=== PATIENT | female | born 1975 | race Caucasian/White ===

== ENCOUNTER → 2016-08-13 | Outpatient (CLI) | payer OTHER, BC ==
[~2016-08-13] MED LIST: Fioricet 325 MG1 TAB PO; NO DAILY MEDS; VICODIN ES 7501 TAB PO; ZOFRAN4 MG PO
[2016-08-13 08:40] LABS: HEMATOCRIT 38.9 % (37.0-47.0); HEMOGLOBIN 13.8 g/dl (12.0-16.0); MEAN CORPUSCULAR HGB 32.6 pg (27.0-31.0); MEAN CORPUSCULAR HGB CONC 35.5 g/dl (33.0-37.0); RED BLOOD COUNT 4.23 10*6/uL (4.10-5.10); RED CELL DISTRI WIDTH 13.3 % (0-14.5); WHITE BLOOD COUNT 8.9 10*3/uL (4.8-10.8)
[2016-08-13 09:06] LABS: ALBUMIN 3.2 gm/dl (3.1-4.5); BILIRUBIN, TOTAL 0.3 mg/dl (0.2-1.0); BUN 8 mg/dl (7-24); CARBON DIOXIDE 25 mmol/L (21-32); CHLORIDE 109 mmol/L (98-107); CHOLESTEROL 224 mg/dL (<200); EST GLOM FILT AFRICAN AMERICAN > 60 ml/min; GLUCOSE 90 mg/dL (65-99); HDL CHOLESTEROL 38 mg/dl (40-60); LDL CHOLESTEROL 149 mg/dL (9-159); SGOT/AST 8 IU/L (3-35); SGPT/ALT 13 U/L (12-78); SODIUM 142 mmol/L (136-145); TOTAL PROTEIN 6.9 gm/dL (6.4-8.2); TRIGLYCERIDES 186 mg/dl (<150); VLDL CHOLESTEROL 37 mg/dL (6-40)
[2016-08-13 09:15] LABS: ALKALINE PHOSPHATASE 86 U/L (45-117)
== END | disposition home or self-care (01) ==
LOC: LAB 08:10
PROVIDERS: Family Medicine
DX: F32.9 Major depressive disorder, single episode, unspecified (principal); F41.1 Generalized anxiety disorder; E74.00 Glycogen storage disease, unspecified; E78.00 Pure hypercholesterolemia, unspecified; R63.5 Abnormal weight gain

== ENCOUNTER → 2017-09-30 | Outpatient (CLI) | payer OTHER, BC ==
--- NOTE | ~2017-09-30 | HM ---
[place], [place] HOLTER MONITOR REPORT NAME: [facility]Z [facility]: [id number] UNIT #: [id number] ROOM: DOCTOR: CHIDI MOORE MD BIRTHDATE: [birth year] DOS: 09/30/2017 HOLTER REPORT The Holter was done on 09/30/2017. Total time analyzed was 23 hours and 59 minutes. Maximum heart rate was 148 beats per minute and minimum rate was 51 beats per minute during sleeping hours. The patient had only 17 isolated ventricular ectopic beats and very rare supraventricular ectopic beats. Sinus arrhythmia was noted at times. The patient recorded palpitations at one time, however, the rhythm strip showed only normal sinus rhythm. CONCLUSION: This is a normal study. CHIDI MOORE MD CM:HOLTER:HOLTER MONITOR REPORT [id number] CHIDI MOORE MD
== END | disposition home or self-care (01) ==
LOC: CARD 08:21
DX: R00.2 Palpitations (principal)

== ENCOUNTER → 2019-06-26 | Outpatient (CLI) | payer OTHER, BC | END | disposition home or self-care (01) | LOC: MRI 07:29 | DX: G44.029 Chronic cluster headache, not intractable (principal); R29.810 Facial weakness; R53.1 Weakness ==

== ENCOUNTER → 2020-09-14 | Outpatient (CLI) | payer OTHER, BC | END | disposition home or self-care (01) | LOC: US 16:43 | PROVIDERS: ATTEND Family Medicine | DX: E04.2 Nontoxic multinodular goiter (principal) ==

== ENCOUNTER → 2023-12-11 | Outpatient (CLI) | payer BC | END | disposition home or self-care (01) | LOC: LAB 11:27 | PROVIDERS: ATTEND Family Medicine | DX: E78.00 Pure hypercholesterolemia, unspecified (principal); E03.9 Hypothyroidism, unspecified; R53.83 Other fatigue; L68.0 Hirsutism; R51.9 Headache, unspecified; R63.5 Abnormal weight gain; K59.00 Constipation, unspecified ==

== ENCOUNTER → 2024-07-15 | Outpatient (CLI) | payer BC | END | disposition home or self-care (01) | LOC: US 03:44 → MAMMO 13:30 | PROVIDERS: ATTEND Family Medicine | DX: D24.1 Benign neoplasm of right breast (principal); R92.331 Mammographic heterogeneous density, right breast; N63.10 Unspecified lump in the right breast, unspecified quadrant; N60.39 Fibrosclerosis of unspecified breast; N17.8 Other acute kidney failure ==

== ENCOUNTER → 2024-09-29 | Outpatient (CLI) | payer BC ==
[~2024-09-29] MED LIST changes: +IOHEXOL 300 MG/ML 100 ML VIAL IV ONE
== END | disposition home or self-care (01) ==
LOC: CT 15:53
PROVIDERS: ATTEND Family Medicine
DX: N28.1 Cyst of kidney, acquired (principal); K76.89 Other specified diseases of liver; K76.0 Fatty (change of) liver, not elsewhere classified; R10.11 Right upper quadrant pain; R10.31 Right lower quadrant pain; J98.11 Atelectasis; Z90.49 Acquired absence of other specified parts of digestive tract